=== PATIENT | male | born 1940 | race Caucasian/White ===

== ENCOUNTER 2022-05-20 07:11 | Inpatient (IN) | payer MEDICARE, OTHER ==
[2022-05-20 07:59] VITALS: BMI 21.1
[2022-05-20] MEDS ORDERED: Dextrose 50% Abboject 50 ML SYRINGE SLOW IVP PRN (10:13)
[2022-05-20] MEDS ORDERED: Dextrose 5% in Water 1,000 ML IV PRN (10:13)
[2022-05-20] MEDS ORDERED: HumaLOG 300 UNITS/3 ML VIAL SC PRN (10:13)
[2022-05-20] MEDS ORDERED: hydrALAZINE 20 MG/ML VIAL SLOW IVP PRN (10:14)
[2022-05-20] MEDS ORDERED: Senokot S 8.6-50 MG TAB PO PRN (10:21)
[2022-05-20] MEDS ORDERED: Acetaminophen 650 MG Suppository PR PRN (10:21)
[2022-05-20] MEDS ORDERED: Ondansetron ODT 4 MG TAB PO PRN (10:21)
[2022-05-20] MEDS ORDERED: Ondansetron PF 4 MG/2 ML Vial IVP PRN (10:21)
[2022-05-20] MEDS ORDERED: Acetaminophen 325 MG TAB PO PRN (10:21)
[2022-05-20 11:23] LABS: CKMB 3.4 ng/mL (0-6.6)
[2022-05-20] MEDS: Ramipril 5 MG CAP PO SCH (16:49)
[2022-05-20] MEDS: Atorvastatin Calcium 40 MG TAB PO SCH (20:50)
[2022-05-20] MEDS: Heparin 5,000 UNITS/ML VIAL SC SCH ×2 (20:52→22:22)
[2022-05-21 05:30] LABS: Anion Gap 15 mmol/L (10-20); BUN (Urea Nitrogen) 32 mg/dL (8.4-25.7); Calc. Creatinine Clearance 34 mL/min (70-130); Calcium 9.3 mg/dL (7.8-10.44); Carbon Dioxide 22 mmol/L (23-31); Cardiac Risk 3.7 (Less than 4.5); Chloride 106 mmol/L (98-107); Cholesterol 161 mg/dl (< 200 Desired); Estimated GFR 46; Glucose 160 mg/dL (83-110); HDL Cholesterol 44 mg/dL (>60 Neg Risk); LDL Cholesterol, Calculated 93 mg/dL; Magnesium 1.7 mg/dL (1.6-2.6); Potassium 3.5 mmol/L (3.5-5.1); Sodium 139 mmol/L (136-145); Triglycerides 120 mg/dL (Less than 150)
[2022-05-21 05:35] LABS: Hemoglobin A1c 9.3 % (4.0-6.0)
[2022-05-21 05:36] LABS: #Basophils 0.1 thou/uL (0.0-0.2); #Eosinphils 0.1 thou/uL (0.0-0.7); #Lymphocytes 2.1 thou/uL (1.20-3.40); #Monocytes 0.6 thou/uL (0.11-0.59); #Neutrophils 4.2 thou/uL (1.40-6.50); %Basophils 0.9 % (0.0-1.0); %Eosinophils 1.5 % (0.0-10.0); %Lymphocytes 29.1 % (21.0-51.0); %Monocytes 8.6 % (0.0-10.0); Hemoglobin 13.1 g/dL (14.0-18.0); Mean Corpuscular HGB CONC 37.1 g/dL (32.0-36.0); Mean Corpuscular Hemoglobin 34.7 pg (27.0-31.0); Mean Corpuscular Volume 93.6 fl (78.0-98.0); Mean Platelet Volume 8.1 fL (7.4-10.4); Platelet Count 264 10x3/uL (130-400); RBC Distribution Width 11.5 % (11.5-14.5); Red Blood Cell (RBC) Count 3.78 mill/uL (4.70-6.10)
[2022-05-21] MEDS: Alogliptin 6.25 MG TAB PO SCH (09:23)
[2022-05-21] MEDS: Aspirin 81 mg Enteric Coated Tablet PO SCH (09:24)
[2022-05-21] MEDS: Heparin 5,000 UNITS/ML VIAL SC SCH ×2 (09:25→19:54)
[2022-05-21] MEDS: Clopidogrel Bisulfate 75 MG TAB PO SCH (09:25)
[2022-05-21] MEDS: Sodium Chloride 0.9% 1,000 ML IV SCH (15:49)
[2022-05-21] MEDS: HumaLOG 300 UNITS/3 ML VIAL SC PRN (17:50)
[2022-05-21] MEDS: Atorvastatin Calcium 40 MG TAB PO SCH (19:54)
[2022-05-21] MEDS: Ramipril 5 MG CAP PO SCH (19:54)
[2022-05-22] MEDS: Sodium Chloride 0.9% 1,000 ML IV SCH ×2 (05:10→20:44)
[2022-05-22 05:50] LABS: Anion Gap 14 mmol/L (10-20); BUN (Urea Nitrogen) 30 mg/dL (8.4-25.7); Calc. Creatinine Clearance 37 mL/min (70-130); Calcium 9.2 mg/dL (7.8-10.44); Carbon Dioxide 23 mmol/L (23-31); Chloride 107 mmol/L (98-107); Estimated GFR 50; Glucose 132 mg/dL (83-110); Potassium 3.6 mmol/L (3.5-5.1); Sodium 140 mmol/L (136-145)
[2022-05-22 06:15] LABS: Mean Corpuscular HGB CONC 34.3 g/dL (32.0-36.0); Mean Corpuscular Hemoglobin 32.5 pg (27.0-31.0); Mean Corpuscular Volume 94.7 fl (78.0-98.0); Mean Platelet Volume 8.7 fL (7.4-10.4); Platelet Count 273 10x3/uL (130-400); RBC Distribution Width 11.3 % (11.5-14.5); White Blood Cell (WBC) Count 7.3 10x3/uL (4.8-10.8)
[2022-05-22 06:57] LABS: Eosinophils 2 % (0-10); Lymphocytes 22 % (21-51); MDiff Complete? YES; Monocytes 9 % (0-10); Neutrophil 67 % (42-75)
[2022-05-22] MEDS: Alogliptin 6.25 MG TAB PO SCH (10:39)
[2022-05-22] MEDS: Aspirin 81 mg Enteric Coated Tablet PO SCH (10:39)
[2022-05-22] MEDS: Heparin 5,000 UNITS/ML VIAL SC SCH ×2 (10:39→20:44)
[2022-05-22] MEDS: Clopidogrel Bisulfate 75 MG TAB PO SCH (10:40)
[2022-05-22] MEDS: HumaLOG 300 UNITS/3 ML VIAL SC PRN ×2 (10:42→17:19)
[2022-05-22] MEDS ORDERED: Haloperidol Lactate 5 MG/ML VIAL IM SCH (16:30)
[2022-05-22] MEDS ORDERED: Ziprasidone 20 MG VIAL IM SCH (17:30)
[2022-05-22] MEDS ORDERED: Sterile Water 10 ML VIAL FS SCH (17:45)
[2022-05-22] MEDS: Atorvastatin Calcium 40 MG TAB PO SCH (20:44)
[2022-05-23 09:00] LABS: #Basophils 0.1 thou/uL (0.0-0.2); #Eosinphils 0.2 thou/uL (0.0-0.7); #Lymphocytes 1.5 thou/uL (1.20-3.40); #Monocytes 0.6 thou/uL (0.11-0.59); #Neutrophils 4.7 thou/uL (1.40-6.50); %Basophils 0.8 % (0.0-1.0); %Eosinophils 2.4 % (0.0-10.0); %Lymphocytes 21.4 % (21.0-51.0); %Monocytes 8.6 % (0.0-10.0); %Neutrophils 66.9 % (42.0-75.0); Hemoglobin 12.4 g/dL (14.0-18.0); Mean Corpuscular HGB CONC 35.1 g/dL (32.0-36.0); Mean Corpuscular Hemoglobin 32.9 pg (27.0-31.0); Mean Corpuscular Volume 93.7 fl (78.0-98.0); Mean Platelet Volume 7.9 fL (7.4-10.4); Platelet Count 246 10x3/uL (130-400); RBC Distribution Width 11.2 % (11.5-14.5); Red Blood Cell (RBC) Count 3.77 mill/uL (4.70-6.10)
[2022-05-23 09:22] LABS: Anion Gap 12 mmol/L (10-20); BUN (Urea Nitrogen) 25 mg/dL (8.4-25.7); Calc. Creatinine Clearance 37 mL/min (70-130); Carbon Dioxide 24 mmol/L (23-31); Chloride 107 mmol/L (98-107); Estimated GFR 51; Glucose 243 mg/dL (83-110); Potassium 3.7 mmol/L (3.5-5.1); Sodium 139 mmol/L (136-145)
[2022-05-23] MEDS: Heparin 5,000 UNITS/ML VIAL SC SCH (09:50)
[2022-05-23] MEDS: Alogliptin 6.25 MG TAB PO SCH (09:50)
[2022-05-23] MEDS: Clopidogrel Bisulfate 75 MG TAB PO SCH (09:50)
[2022-05-23] MEDS: Aspirin 81 mg Enteric Coated Tablet PO SCH (09:50)
[2022-05-23] MEDS: Sodium Chloride 0.9% 1,000 ML IV SCH (09:55)
[2022-05-23] MEDS: HumaLOG 300 UNITS/3 ML VIAL SC PRN (11:11)
[2022-05-23 11:19] VITALS: BP 123/66; TEMP 98.3
[2022-05-23 12:12] LABS: Bacteria/HPF None Seen HPF (None Seen); Bilirubin Negative (Negative); Blood, Urine Negative (Negative); CAUTI Indications for Culture Alt mental st,lethar; Clarity Clear (Clear); Glucose, Urine (Dipstick) Greater than 1000 mg/dL (Negative); Ketone, Urine Negative (Negative); Leukocyte Negative Leu/uL (Negative); Nitrite Negative (Negative); Protein, Urine (Dipstick) Negative (Neg-Trace); RBC/HPF 0-3 HPF (0-3); Specific Gravity, Urine 1.016 (1.002-1.036); Squamous Epithelial None Seen HPF (0-3); Urobilinogen Normal mg/dL (Less than 2); WBC/HPF 0-3 HPF (0-3)
[2022-05-23 12:13] LABS: Urine Culture Reflex No No
[2022-05-23 12:16] LABS: Amphetamine Not Detected (NotDetected); Barbiturates Screen Not Detected (NotDetected); Benzodiazepine Screen Not Detected (NotDetected); Cocaine Metabolite Screen Not Detected (NotDetected); Methadone Not Detected (NotDetected); Methamphetamine Not Detected (NotDetected); Opiate Screen Not Detected (NotDetected); Oxycodone Screen Not Detected (NotDetected); Phencyclidine (PCP) Not Detected (NotDetected); THC/Cannabinoid Screen Not Detected (NotDetected); Tricyclic Screen Not Detected (NotDetected)
== END 2022-05-23 13:12 | disposition home health service (06) | DRG 69 ==
LOC: 2NO 07:11 → OBSVTOIN 10:20 → INTOOBSV 10:20 → OBSVTOIN 05-22 14:22
PROVIDERS: ADMIT Student in an Organized Health Care Education/Training Program; ATTEND Internal Medicine
DX: G45.9 Transient cerebral ischemic attack, unspecified (principal); G93.41 Metabolic encephalopathy; Z20.822 Contact with and (suspected) exposure to COVID-19; R29.700 NIHSS score 0; E78.5 Hyperlipidemia, unspecified; I25.10 Atherosclerotic heart disease of native coronary artery without angina pectoris; E11.22 Type 2 diabetes mellitus with diabetic chronic kidney disease; N18.30 Chronic kidney disease, stage 3 unspecified; I12.9 Hypertensive chronic kidney disease with stage 1 through stage 4 chronic kidney disease, or unspecified chronic kidney disease; R47.1 Dysarthria and anarthria; Z88.6 Allergy status to analgesic agent; Z95.1 Presence of aortocoronary bypass graft; Z79.899 Other long term (current) drug therapy; Z79.4 Long term (current) use of insulin; Z82.3 Family history of stroke
CPT/HCPCS: 36415; 36416; 70551; 71045; 80048; 80061; 80306; 81001; 82553; 83036; 83735; 84443; 85025; 87040; 93306; 93880; 96372; G0378; J1630; J1644; J1815; J7050; U0003; U0005